=== PATIENT | male | born 1930 | race Caucasian/White ===

== ENCOUNTER → 2017-10-10 | Outpatient (CLI) | payer MEDICARE ==
[~2017-10-10] MED LIST: ASPI-650 PO; DOCU-131 PO; HYDR-3240 PO
== END | disposition home or self-care (01) ==
LOC: CFH 12:31
PROVIDERS: ATTEND Orthopaedic Surgery
DX: Z13.820 Encounter for screening for osteoporosis (principal); M85.9 Disorder of bone density and structure, unspecified
CPT/HCPCS: 77080

== ENCOUNTER 2018-05-09 17:18 | Emergency (ER) | payer MEDICARE ==
[~2018-05-09] VITALS: Ht 185.4 cm; Wt 83.0 kg
[2018-05-09 17:20] VITALS: BP 163/77
[2018-05-09] MEDS ORDERED: LIDOCAINE 2%, 10ML INFIL ONE (17:30)
[2018-05-09] MEDS ORDERED: LIDOCAINE-MPF 2% ,5ML ONE (17:33)
== END 2018-05-09 20:16 | disposition home or self-care (01) ==
LOC: ED 20:11
DX: S62.522B Displaced fracture of distal phalanx of left thumb, initial encounter for open fracture (principal); I10 Essential (primary) hypertension; Z87.891 Personal history of nicotine dependence; X58.XXXA Exposure to other specified factors, initial encounter; Y93.89 Activity, other specified; Y99.8 Other external cause status; Y92.009 Unspecified place in unspecified non-institutional (private) residence as the place of occurrence of the external cause
CPT/HCPCS: 11760; 13132; 99285

== ENCOUNTER → 2019-05-14 | Outpatient (CLI) | payer MEDICARE | END | disposition home or self-care (01) | LOC: CVU 12:40 | PROVIDERS: ATTEND Genetic Counselor, MS | DX: I08.8 Other rheumatic multiple valve diseases (principal); I65.23 Occlusion and stenosis of bilateral carotid arteries; J44.9 Chronic obstructive pulmonary disease, unspecified; I10 Essential (primary) hypertension | CPT/HCPCS: 93306; 93880 ==

== ENCOUNTER → 2019-09-21 | Outpatient (CLI) | payer MEDICARE | END | disposition home or self-care (01) | LOC: CFH 07:23 | PROVIDERS: ATTEND Nurse Practitioner Family | DX: I70.0 Atherosclerosis of aorta (principal) | CPT/HCPCS: 93978 ==

== ENCOUNTER 2019-10-20 16:21 | Emergency (ER) | payer MEDICARE ==
[~2019-10-20] VITALS: Ht 182.9 cm; Wt 83.0 kg
[2019-10-20 17:11] LABS: BASOPHILS # (AUTO) 0.03 x10^3/uL (0-0.1); BASOPHILS % (AUTO) 0 % (0-1); EOSINOPHILS # (AUTO) 0.18 x10^3/uL (0-0.4); EOSINOPHILS % (AUTO) 2 % (1-7); LYMPHOCYTES # (AUTO) 1.48 x10^3/uL (1-3.4); LYMPHOCYTES % (AUTO) 18 % (22-44); MD NO; MEAN CORPUSCULAR HEMOGLOBIN 31.8 pg (27.5-34.5); MEAN CORPUSCULAR HGB CONC 32.7 g/dL (33.2-36.2); MEAN CORPUSCULAR VOLUME 97.3 fL (81-97); MONOCYTES # (AUTO) 0.76 x10^3/uL (0.2-0.8); MONOCYTES % (AUTO) 9 % (2-9); NEUTROPHILS # (AUTO) 5.98 x10^3/uL (1.8-6.8); NEUTROPHILS % (AUTO) 71 % (42-75); PLATELET COUNT 294 x10^3/uL (130-400); RED BLOOD COUNT 4.74 x10^6/uL (4.38-5.82); RED CELL DISTRIBUTION WIDTH 14.4 % (9.4-14.8)
--- NOTE | 2019-10-20 17:15 | NUR ---
PT HERE FOR ELEVATED BP, PT DOES NOT CURRENTLY TAKE BP MEDICATIONS BUT MONITORS IT AT HOME, PT STATE HE HAD SOME ELEVATED READINGS AND DECIDED TO COME GET CHECKED OUT
[2019-10-20 17:19] LABS: ALBUMIN 3.9 g/dL (3.4-5.0); ANION GAP 5 mmol/L (5-15); CALCIUM 9.4 mg/dL (8.5-10.1); CHLORIDE 107 mmol/L (98-107); CREATININE 1.05 mg/dL (0.7-1.3)
[2019-10-20 17:36] LABS: TROPONIN I < 0.015 ng/mL (0.000-0.045)
[2019-10-20 18:38] VITALS: BP 154/79
--- NOTE | 2019-10-20 18:38 | NUR ---
BP REMAINS 150S/70S, ERMD UPDATED, PT TO DC
== END 2019-10-20 18:56 | disposition home or self-care (01) ==
LOC: ED 17:41
DX: I10 Essential (primary) hypertension (principal)
CPT/HCPCS: 36415; 80048; 82040; 84439; 84443; 84484; 85025; 93005; 99284

== ENCOUNTER 2020-01-23 05:32 | Emergency (ER) | payer MEDICARE ==
[~2020-01-23] VITALS: Ht 180.3 cm; Wt 83.1 kg
[2020-01-23 05:34] VITALS: BP 130/72
--- NOTE | 2020-01-23 05:47 | NUR ---
THIS IS A 89Y M THAT COMES IN TODAY FOR BILAT EAR PAIN AND NASAL CONGESTION. PT STS HE HAS BEEN TRYING NASAL SPRAYS TO HELP WITH CONGESTION AND EAR PAIN. PT REPORTS NO HELP. PT RESTING ON SHAGGY LOPEZ AT BEDSIDE TO ASSESS PT.
[2020-01-23] MEDS ORDERED: OXYMETAZOLINE NASAL SPRAY 0.05%,30ML ONE (05:59)
[2020-01-23] MEDS ORDERED: OXYMETAZOLINE NASAL SPRAY 0.05%, 15ML NAS ONE (06:00)
== END 2020-01-23 06:32 | disposition home or self-care (01) ==
LOC: ED 06:20
DX: H65.03 Acute serous otitis media, bilateral (principal); J01.90 Acute sinusitis, unspecified; I10 Essential (primary) hypertension; Z87.891 Personal history of nicotine dependence
CPT/HCPCS: 99283

== ENCOUNTER 2020-09-12 13:23 | Outpatient (CLI) | payer MEDICARE ==
[2020-09-12] MEDS ORDERED: OMNIPAQUE 350 MG/ML, 100ML BOTTLE ONE (13:45)
== END 2020-09-12 23:59 | disposition home or self-care (01) ==
LOC: CFH 13:23
PROVIDERS: ATTEND Internal Medicine Cardiovascular Disease
DX: I71.2 Thoracic aortic aneurysm, without rupture (principal); I25.10 Atherosclerotic heart disease of native coronary artery without angina pectoris
CPT/HCPCS: 71275; 82565; Q9967

== ENCOUNTER → 2020-10-13 | Outpatient (CLI) | payer MEDICARE ==
[~2020-10-13] MED LIST changes: +REGADENOSON 0.4 MG/5 ML SYRINGE ONE
== END | disposition home or self-care (01) ==
LOC: CFH 07:30
PROVIDERS: ATTEND Internal Medicine Cardiovascular Disease
DX: R07.89 Other chest pain (principal)
CPT/HCPCS: 78452; 93017; A9502; J2785